=== PATIENT | male | born 1965 | race Caucasian/White ===

== ENCOUNTER 2017-01-26 08:34 | Day surgery (SDC) | payer OTHER ==
[2017-01-24 18:52] LABS: HEMOGLOBIN 16.7 g/dL (13.6-17.8)
[~2017-01-26] VITALS: Ht 180.3 cm; Wt 88.2 kg
--- NOTE | ~2017-01-26 | OP ---
Record Of Operation [facility] [address] [place]. 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 OPERATIVE PROCEDURE: Excision of a lesion from the anterior tongue with primary closure. ANESTHESIA: General endotracheal. ESTIMATED BLOOD LOSS: 5 mL. INTRAOPERATIVE FLUIDS: 700 mL crystalloid. INTRAOPERATIVE FINDINGS: Ulcerated lesion on the right lateral aspect of the tongue, with the area of ulceration measuring approximately 5 x 15 mm. A narrow excision of this lesion was performed with the tissue sent to Surgical Pathology for histologic evaluation. The frozen section demonstrated no evidence of invasive carcinoma with a possible area of carcinoma in situ, with negative margins. With these findings, no additional tissue was resected and the lesion was closed primarily. OPERATIVE PROCEDURE: The patient was identified in the holding room, and transported to the operating room. In the operating room, the patient was placed on the operating room table in the supine position. Following induction of anesthesia, the patient was intubated without difficulty. A August retractor was placed for exposure of the tongue. A 2-0 silk suture was placed through the anterior tongue for retraction purposes. A proposed site of excision around the lesion on the right tongue was marked with the unipolar cautery. The tongue was then injected with 1% lidocaine with 1:100,000 epinephrine along the right lateral aspect. The patient was prepped and draped in preparation for his surgery. An incision was performed around the lesion on the right side of the tongue in the aforementioned fashion. The incision had been diagrammed to allow complete removal of the area of ulceration on the right side of the tongue. As discussed with the patient, preoperatively, if the frozen section confirmed the presence of an invasive carcinoma, a wider excision was to be performed. Using the bipolar cautery in a cut setting, a wedge of tissue was excised from the right lateral aspect of the tongue overlying the area of ulceration. This tissue was sent to Surgical Pathology for histologic evaluation with a suture marking the posterior aspect of the lesion, identified as the 9 o'clock position. Hemostasis was achieved with the use of the unipolar cautery. While awaiting the results of the Surgical Pathology, and the defect on the right lateral aspect of the tongue was closed using buried interrupted 3-0 chromic suture. 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 The margins were reported to be clear. With these findings, no further tissue was excised. The patient was awakened from anesthesia, extubated in the operating room, and transported to the recovery room in good condition. The patient tolerated the procedure Record Of [address] [address] NAME: JERE HERNANDEZ : 61 STATUS : [facility] PAT#: [id number] AGE: 52 ADM/REG DATE : 01/26/17 MR#: [id number] REPORT SERV DATE: 02/02/17 DICTATED BY: MAGEN VILLANUEVA DATE: 02/02/17 REPORT STATUS : Draft TRANSCRIBED BY: AUDREY DATE: 02/02/17 well. There were no apparent complications. SPECIMENS: Included right lateral tongue lesion. LIONEL/AUDREY Magen Villanueva M.D. / [id number] CC: Lauren Hobbs
[~2017-01-26 08:34] MED LIST: CHANTIX1 PO; LIPITOR20 PO; MOBIC15 MG PO; PAXIL40 MG PO; PRILO PO
== END 2017-01-26 15:00 | disposition home or self-care (01) ==
LOC: SDC 08:34
PROVIDERS: Otolaryngology
PROC: 0CB7XZZ Excision of Tongue, External Approach (ICD-10-PCS; principal; 2017-01-26 09:45)
DX: D00.07 Carcinoma in situ of tongue (principal); F17.210 Nicotine dependence, cigarettes, uncomplicated; E78.5 Hyperlipidemia, unspecified; K21.9 Gastro-esophageal reflux disease without esophagitis; F41.9 Anxiety disorder, unspecified; Z79.899 Other long term (current) drug therapy; Z88.0 Allergy status to penicillin; Z98.890 Other specified postprocedural states
CPT/HCPCS: 85014; 85018; 88305; 88331; 88332; 93005; J0690; J2250; J2405; J2710; J3010